=== PATIENT | female | born 1995 | race Hispanic/Latino ===

== ENCOUNTER 2020-04-08 00:48 | Emergency (ER) | payer BC, MEDICAID ==
[2020-04-08] MEDS ORDERED: PROMETHAZINE HCL 25 MG/ML 1ML AMPULE IM ONE (00:49)
[2020-04-08] MEDS ORDERED: LACTATED RINGERS 1000ML 1,000 ML IV ONE (01:21)
== END 2020-04-08 04:06 | disposition home or self-care (01) ==
LOC: EDH 00:48
DX: O99.611 Diseases of the digestive system complicating pregnancy, first trimester (principal); K29.70 Gastritis, unspecified, without bleeding; Z3A.10 10 weeks gestation of pregnancy
CPT/HCPCS: 36415; 76705; 80053; 81003; 81025; 83690; 85025; 96361; 96374; 99284; J2550; J7120

== ENCOUNTER 2020-11-03 20:13 | Inpatient (IN) | payer BC, MEDICAID ==
[~2020-11-03] VITALS: Ht 157.5 cm; Wt 91.6 kg
[2020-11-03] MEDS ORDERED: LACTATED RINGERS 1000ML 1,000 ML IV PRN (20:30)
[2020-11-03 21:10] LABS: APPEARANCE,URINE Clear (CLEAR); BILIRUBIN,URINE Negative (NEGATIVE); COLOR,URINE Dark Yellow (YELLOW); GLUCOSE, URINE (UA) Negative (NEGATIVE); KETONES,URINE Negative (NEGATIVE); LEUKOCYTE ESTERASE ,URINE Trace (NEGATIVE); NITRATE,URINE Negative (NEGATIVE); OCCULT BLOOD,URINE Negative (NEGATIVE); PROTEIN,URINE POS 1+ mg/dL (NEGATIVE)
[2020-11-03 21:25] LABS: HEMATOCRIT 39.8 % (36-48); MEAN CORPUSCULAR HEMOGLOBIN 28.9 pg (27.0-33.0); MEAN CORPUSCULAR HGB CONC 33.2 g/dL (32.0-36.0); MEAN CORPUSCULAR VOLUME 87.1 fL (79-99); RED BLOOD CELL COUNT(AUTO) 4.57 MIL/uL (4.00-5.50); RED CELL DISTRIBUTION WIDTH 14.1 % (11.0-15.5); WHITE BLOOD COUNT (AUTO) 9.7 K/uL (4.8-10.8)
[2020-11-03 21:31] LABS: BACTERIA,URINE Few /HPF (None Seen); MUCUS,URINE Few LPF (None Seen); SQUAMOUS EPITHELIAL CELL,UR Moderate /HPF (0-2)
[2020-11-03 22:57] VITALS: BP 133/74
[2020-11-03] MEDS ORDERED: METF-444 PO (23:12)
[2020-11-03] MEDS ORDERED: PREN1TAB80 PO (23:12)
[2020-11-04] MEDS ORDERED: OXYTOCIN 10 USP UNITS/ML 20 UNIT in DEXTROSE 5 %-0.45 % NACL 1,000 ML IV SCH (01:00)
[2020-11-04] MEDS ORDERED: OXYTOCIN-LR 20 UNITS/1000 ML 1,000 ML IV SCH (01:00)
[2020-11-04] MEDS: BUTORPHANOL TARTRATE 2 MG/ML IVP PRN ×2 (06:45→09:06)
[2020-11-04] MEDS ORDERED: ROPIVACAINE 0.2% 100ML VIAL 100 ML EP SCH (06:45)
[2020-11-04] MEDS ORDERED: NALOXONE HCL 0.4 MG/1 ML ML IV PRN (06:45)
[2020-11-04] MEDS ORDERED: EPHEDRINE SULFATE 50 MG/ML AMPULE IVP PRN (06:45)
[2020-11-04] MEDS ORDERED: LACTATED RINGERS 500 ML 500 ML IV PRN (06:45)
[2020-11-04] MEDS ORDERED: LIDOCAINE HCL 1% 20 ML VIAL ONE ×2 (10:07→10:25)
[2020-11-04] MEDS ORDERED: METHYLERGONOVINE MALEATE 0.2 MG/1 ML ML ONE (10:24)
[2020-11-04] MEDS ORDERED: LIDOCAINE HCL 1% 20 ML VIAL INJ SCH (10:30)
[2020-11-04] MEDS ORDERED: METHYLERGONOVINE MALEATE 0.2 MG/1 ML ML IM SCH (10:30)
[2020-11-04] MEDS ORDERED: ACETAMINOPHEN-CODEINE 300/30MG TAB PO PRN (10:45)
[2020-11-04] MEDS ORDERED: BENZOCAINE/LANOLIN/ALOE VERA 60 ML AEROSOL TP PRN (10:45)
[2020-11-04] MEDS ORDERED: ACETAMINOPHEN 325 MG TAB PO PRN (10:45)
[2020-11-04] MEDS ORDERED: LANOLIN 30GM OINTMENT TP PRN (10:45)
[2020-11-04] MEDS ORDERED: WITCH HAZEL 1 PAD TP PRN (10:45)
[2020-11-04 12:47] VITALS: BP 141/88
[2020-11-04] MEDS: IBUPROFEN 600 MG TABLET PO PRN (16:36)
[2020-11-04 16:59] VITALS: BP 136/72
[2020-11-04 19:22] VITALS: BP 136/76
[2020-11-04] MEDS: DOCUSATE SODIUM 100 MG CAP PO SCH (21:20)
[2020-11-04 23:00] VITALS: BP 129/77
[2020-11-05 03:03] VITALS: BP 120/84
[2020-11-05 06:12] LABS: HEPATITIS Bs ANTIGEN SCREEN P Negative (Negative)
[2020-11-05] MEDS: IBUPROFEN 600 MG TABLET PO PRN (06:40)
[2020-11-05 07:25] VITALS: BP 124/80
[2020-11-05] MEDS: DOCUSATE SODIUM 100 MG CAP PO SCH (09:18)
[2020-11-05 11:21] VITALS: BP 120/85
== END 2020-11-05 12:55 | disposition home or self-care (01) | DRG 807 ==
LOC: LDH 20:13 → WSH 11-04 12:45
PROVIDERS: ADMIT Obstetrics & Gynecology; ATTEND Obstetrics & Gynecology
PROC: 10E0XZZ Delivery of Products of Conception, External Approach (ICD-10-PCS; principal; 2020-11-04)
PROC: 0KQM0ZZ Repair Perineum Muscle, Open Approach (ICD-10-PCS; 2020-11-04)
PROC: 10907ZC Drainage of Amniotic Fluid, Therapeutic from Products of Conception, Via Natural or Artificial Opening (ICD-10-PCS; 2020-11-04)
PROC: 0UQMXZZ Repair Vulva, External Approach (ICD-10-PCS; 2020-11-04)
PROC: 3E033VJ Introduction of Other Hormone into Peripheral Vein, Percutaneous Approach (ICD-10-PCS; 2020-11-04)
DX: O14.04 Mild to moderate pre-eclampsia, complicating childbirth (principal); Z37.0 Single live birth; O24.425 Gestational diabetes mellitus in childbirth, controlled by oral hypoglycemic drugs; Z3A.39 39 weeks gestation of pregnancy; O70.1 Second degree perineal laceration during delivery; O71.82 Other specified trauma to perineum and vulva
CPT/HCPCS: 36415; 81001; 82947; 85027; 86592; 86850; 86900; 86901; 87340; A4314; A4351; G0378; J0595; J2210; J2590; J7120